=== PATIENT | male | born 1985 | race Hispanic/Latino ===

== ENCOUNTER 2021-04-08 20:54 | Emergency (ER) | payer OTHER ==
[2021-04-08] MEDS ORDERED: ONDANSETRON ODT 4 MG TAB ONE (21:37)
== END 2021-04-08 22:34 | disposition home or self-care (01) ==
LOC: EDH 20:54
DX: G44.309 Post-traumatic headache, unspecified, not intractable (principal); I10 Essential (primary) hypertension; F41.9 Anxiety disorder, unspecified; Z88.0 Allergy status to penicillin
CPT/HCPCS: 70450

== ENCOUNTER 2023-04-12 20:35 | Emergency (ER) | payer BC, OTHER ==
[~2023-04-12] VITALS: Ht 175.3 cm; Wt 96.6 kg
[2023-04-12] MEDS ORDERED: CEPH500B PO (23:39)
[2023-04-12] MEDS ORDERED: IBUP-1493 PO (23:39)
[2023-04-13 00:08] VITALS: BP 132/79
== END 2023-04-13 00:13 | disposition home or self-care (01) ==
LOC: EDH 20:35
DX: S60.311A Abrasion of right thumb, initial encounter (principal); S50.811A Abrasion of right forearm, initial encounter; S00.211A Abrasion of right eyelid and periocular area, initial encounter; I10 Essential (primary) hypertension; E78.00 Pure hypercholesterolemia, unspecified; F41.9 Anxiety disorder, unspecified; Z88.0 Allergy status to penicillin; W50.3XXA Accidental bite by another person, initial encounter; Y93.89 Activity, other specified; Y92.89 Other specified places as the place of occurrence of the external cause; Y99.8 Other external cause status
CPT/HCPCS: 29125; 70450; 70486; 71045; 72125; 73090; 73130

== ENCOUNTER 2024-04-15 18:11 | Emergency (ER) | payer OTHER ==
[~2024-04-15] VITALS: Ht 175.3 cm; Wt 96.6 kg
[~2024-04-15 18:11] MED LIST: CEPH500B PO; IBUP-1493 PO
[2024-04-15 18:34] VITALS: BP 129/77; PULSE 64; RESP 20
[2024-04-15] MEDS: TETRACAINE HCL 0.5% 4 ML OPHTH SOLN OS SCH (20:51)
[2024-04-15] MEDS: FLUORESCEIN SODIUM 1 STRIP STRIP OP SCH (20:51)
== END 2024-04-15 21:51 | disposition home or self-care (01) ==
LOC: EDH 18:11
DX: S40.812A Abrasion of left upper arm, initial encounter (principal); S00.212A Abrasion of left eyelid and periocular area, initial encounter; S50.812A Abrasion of left forearm, initial encounter; I10 Essential (primary) hypertension; E78.00 Pure hypercholesterolemia, unspecified; F41.9 Anxiety disorder, unspecified; Z79.899 Other long term (current) drug therapy; Z98.890 Other specified postprocedural states; Z88.0 Allergy status to penicillin; Y08.89XA Assault by other specified means, initial encounter; Y93.89 Activity, other specified; Y92.89 Other specified places as the place of occurrence of the external cause; Y99.8 Other external cause status
CPT/HCPCS: 70450; 73060